=== PATIENT | male | born 1975 | race Caucasian/White ===

== ENCOUNTER 2023-06-11 09:23 | Emergency (ER) | payer BC, OTHER, SELFPAY ==
[2023-06-11 09:26] VITALS: BP 158/86; PULSE 59; RESP 18; TEMP 36.7; O2SAT 99; BMI 30.8
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
[2023-06-11] MEDS: DEXAMETHASONE SODIUM PHOSPHATE 10 MG/ML VIAL IM (10:04)
[2023-06-11] MEDS: KETOROLAC TROMETHAMINE 60 MG/2 ML VIAL IM (10:04)
[2023-06-11] MEDS: ORPHENADRINE 60 MG/ 2 ML VIAL IM (10:05)
[2023-06-11] MEDS: ONDANSETRON 4 MG RAPDIS TABLET SL (10:10)
--- NOTE | 2023-06-11 10:37 | CT_ITS ---
[address] [address] Patient Name: AHSAN MCCAIN MRN: [id number] date: 1975 Sex: M Assigned Patient Location: ER Current Patient Location: Accession/Order Number: [id number] Exam Date: 06/11/2023 10:28 Report Date: 06/11/2023 10:55 At the request of: ERNESTINA ZAMUDIO Procedure: CT lumbar spine wo con CT lumbar spine wo con: 06/11/2023 10:28 AM EDT CLINICAL HISTORY: 47 years old Male with pain TECHNIQUE: CT lumbar spine wo con was performed with multiple axial images obtained from the skull base through the thoracic inlet without intravenous contrast administration. Reformations in the coronal and sagittal planes are also obtained. Dose reduction techniques were achieved by using automated exposure control and/or adjustment of mA and/or kV according to patient size and/or use of iterative reconstruction technique. COMPARISON: None FINDINGS: Satisfactory alignment. Anterior fusion of L5-S1 with discectomy and disc spacer. Maintained vertebral body heights. Mild disc disease with endplate degenerative changes anterior spurring of L1-L2 and L5-S1. No significant spinal canal stenosis or neural foramina narrowing. No acute fracture or subluxation. Unremarkable soft tissues. CT/CT lumbar spine wo con IMPRESSION: No acute fracture or subluxation. Electronically authenticated by: DENISE GOODMAN Date: 06/11/2023 10:55
[2023-06-11] MEDS: HYDROMORPHONE HCL 1 MG/ML CARTRIDGE IM (11:39)
[2023-06-11 12:14] VITALS: BP 144/91; PULSE 56; RESP 16; O2SAT 98
== END 2023-06-11 12:16 | disposition home or self-care (01) ==
PROVIDERS: Emergency Provider Emergency Medicine; PCP Family Medicine
DX: S39.012A Strain of muscle, fascia and tendon of lower back, initial encounter (principal); W19.XXXA Unspecified fall, initial encounter; F17.210 Nicotine dependence, cigarettes, uncomplicated; F11.20 Opioid dependence, uncomplicated
CPT/HCPCS: 72131; 96372; 99284; J1100; J1170